=== PATIENT | female | born 1940 | race Caucasian/White ===

== ENCOUNTER → 2017-08-12 | Outpatient (CLI) | payer MEDICARE, BC ==
[~2017-08-12] MED LIST: ASPI81CH PO; ASPI81EC PO; CHOL10002 PO; CLIN300 PO; Cleocin HCl300 MG PO; GLUCHON PO; Hair, Skin & N1 EACH PO; IBUP600 PO; LORA1 PO; LOVA40 PO; METH10 PO; METH5 PO; Norco 5-325 Ta1 EACH PO; UBID100 PO; WARF1 PO; WARF2.5 PO; WARF5 PO
== END | disposition home or self-care (01) ==
LOC: LAB EV 15:23
DX: L03.115 Cellulitis of right lower limb (principal)
CPT/HCPCS: 87070; 87205

== ENCOUNTER 2017-08-29 20:55 | Emergency (ER) | payer MEDICARE, BC ==
[~2017-08-29] VITALS: Ht 165.1 cm; Wt 68.0 kg
[~2017-08-29 20:55] MED LIST changes: -CLIN300 PO; -METH10 PO
[2017-08-29] MEDS ORDERED: METH10 PO (22:57)
[2017-08-30] MEDS ORDERED: CLIN300 PO (00:12)
== END 2017-08-30 00:44 | disposition home or self-care (01) ==
LOC: ER 20:55
DX: L03.115 Cellulitis of right lower limb (principal); E11.9 Type 2 diabetes mellitus without complications; Z87.891 Personal history of nicotine dependence
CPT/HCPCS: 73630; 96365; 99283

== ENCOUNTER 2017-09-05 12:30 | Day surgery (SDC) | payer MEDICARE, BC ==
[~2017-09-05 12:30] MED LIST changes: +CLIN300 PO; +METH10 PO
== END 2017-09-05 14:20 | disposition home or self-care (01) ==
LOC: WOUND 12:30
DX: Z48.00 Encounter for change or removal of nonsurgical wound dressing (principal); I87.2 Venous insufficiency (chronic) (peripheral); L03.031 Cellulitis of right toe; E11.9 Type 2 diabetes mellitus without complications
CPT/HCPCS: G0463

== ENCOUNTER 2017-09-12 10:00 | Day surgery (SDC) | payer MEDICARE, BC | END 2017-09-12 23:02 | disposition home or self-care (01) | LOC: WOUND 10:00 | PROC: 2W1QX6Z Compression of Right Lower Leg using Pressure Dressing (ICD-10-PCS; principal; 2017-09-12) | DX: Z48.00 Encounter for change or removal of nonsurgical wound dressing (principal); E11.69 Type 2 diabetes mellitus with other specified complication; L03.031 Cellulitis of right toe; I87.2 Venous insufficiency (chronic) (peripheral); Z86.711 Personal history of pulmonary embolism | CPT/HCPCS: G0463 ==

== ENCOUNTER 2017-09-19 01:00 | Day surgery (SDC) | payer MEDICARE, BC | END 2017-09-19 10:51 | disposition home or self-care (01) | LOC: WOUND 01:00 | PROC: 2W1QX6Z Compression of Right Lower Leg using Pressure Dressing (ICD-10-PCS; principal; 2017-09-19) | DX: Z48.00 Encounter for change or removal of nonsurgical wound dressing (principal); I87.2 Venous insufficiency (chronic) (peripheral); E11.69 Type 2 diabetes mellitus with other specified complication; L03.031 Cellulitis of right toe; Z86.711 Personal history of pulmonary embolism ==

== ENCOUNTER 2017-09-25 00:23 | Day surgery (SDC) | payer MEDICARE, BC | END 2017-09-25 15:05 | disposition home or self-care (01) | LOC: WOUND 00:23 | PROC: 2W1QX6Z Compression of Right Lower Leg using Pressure Dressing (ICD-10-PCS; principal; 2017-09-25) | DX: Z48.00 Encounter for change or removal of nonsurgical wound dressing (principal); E11.69 Type 2 diabetes mellitus with other specified complication; I87.2 Venous insufficiency (chronic) (peripheral); L03.031 Cellulitis of right toe; E11.622 Type 2 diabetes mellitus with other skin ulcer; L97.811 Non-pressure chronic ulcer of other part of right lower leg limited to breakdown of skin | CPT/HCPCS: 93970; G0463 ==

== ENCOUNTER 2017-09-27 11:00 | Day surgery (SDC) | payer MEDICARE, BC | END 2017-09-27 12:39 | disposition home or self-care (01) | LOC: WOUND 11:00 | DX: Z48.00 Encounter for change or removal of nonsurgical wound dressing (principal); I87.2 Venous insufficiency (chronic) (peripheral); E11.69 Type 2 diabetes mellitus with other specified complication; L03.031 Cellulitis of right toe ==

== ENCOUNTER 2017-10-04 00:17 | Day surgery (SDC) | payer MEDICARE, BC | END 2017-10-04 22:41 | disposition home or self-care (01) | LOC: WOUND 00:17 | DX: Z48.00 Encounter for change or removal of nonsurgical wound dressing (principal); I87.2 Venous insufficiency (chronic) (peripheral); L03.031 Cellulitis of right toe; E11.9 Type 2 diabetes mellitus without complications | CPT/HCPCS: G0463 ==

== ENCOUNTER → 2023-02-15 | Outpatient (CLI) | payer MEDICARE, BC ==
[~2023-02-15] MED LIST changes: +ESCI10 PO; +METO25ER PO; +VICTOZA 2-0.6 MG/0.1 SC; +XARELTO20 MG PO
[2023-02-15 11:38] LABS: International Normalized Ratio 1.5; Prothrombin Time Results 15.4 Sec (9.7-11.5)
== END | disposition home or self-care (01) ==
LOC: LAB SHORT 10:52 → LAB 10:52
PROVIDERS: Physician Assistant
DX: R92.8 Other abnormal and inconclusive findings on diagnostic imaging of breast (principal)
CPT/HCPCS: 36415; 85610

== ENCOUNTER 2023-03-24 13:32 | Day surgery (SDC) | payer MEDICARE, BC ==
[~2023-03-24 13:32] MED LIST changes: +ASCORBIC ACID500 MG PO; +DEXA2 PO; +MAGNESIUM PO; +NITR.4SL SL; +OMEGA-3 + VITA200 ML PO; +ONDA8 PO; +VITAMIN D310 MC5 PO; +ZINC15 PO
== END 2023-03-31 22:56 | disposition home or self-care (01) ==
LOC: MOI US 13:32
DX: C50.911 Malignant neoplasm of unspecified site of right female breast (principal)
CPT/HCPCS: 19285; A4648

== ENCOUNTER 2023-03-28 12:00 | Day surgery (SDC) | payer MEDICARE, BC | END 2023-04-03 22:44 | disposition home or self-care (01) | LOC: MOI US 12:00 | DX: C50.911 Malignant neoplasm of unspecified site of right female breast (principal) | CPT/HCPCS: 19285; 76942; A4648 ==

== ENCOUNTER 2023-03-29 08:05 | Day surgery (SDC) | payer MEDICARE, BC ==
[~2023-03-29] VITALS: Ht 165.1 cm; Wt 69.8 kg
[2023-03-29] VITALS (10 sets, daily range): BP systolic 121–160; BP diastolic 57–83
--- NOTE | 2023-03-29 09:37 | NUR ---
Ambulatory in Day Surgery History, Chart, Medications and Allergies reviewed before start of procedure. Pre-Op teaching done. Pt verbalizes understanding. Patient States Post-Procedure ride home has been arranged with daughter.
--- NOTE | 2023-03-29 11:29 | NUR ---
03/29/23 1129 Marily Paez 1125 CALL FROM [facility] IN RADIOLOGY, PER DR. CEDENO SPECIMEN APPEARED TO HAVE ALL COMPONENTS
== END 2023-03-29 22:42 | disposition home or self-care (01) ==
LOC: ORSCMMR 08:05 → NM 08:05
PROVIDERS: Surgery
PROC: 07B50ZX Excision of Right Axillary Lymphatic, Open Approach, Diagnostic (ICD-10-PCS; principal; 2023-03-29 10:00)
PROC: 0HBT0ZZ Excision of Right Breast, Open Approach (ICD-10-PCS; principal; 2023-03-29 10:00)
DX: C50.911 Malignant neoplasm of unspecified site of right female breast (principal); Z17.0 Estrogen receptor positive status [ER+]; D36.0 Benign neoplasm of lymph nodes; I10 Essential (primary) hypertension; E11.9 Type 2 diabetes mellitus without complications; Z87.891 Personal history of nicotine dependence; J44.9 Chronic obstructive pulmonary disease, unspecified; K21.9 Gastro-esophageal reflux disease without esophagitis; Z79.899 Other long term (current) drug therapy; Z79.01 Long term (current) use of anticoagulants
CPT/HCPCS: 38792; 76098; 82947; 88307; 88329; 88331; 88333; A9270; A9520; J0690; J1100; J2371; J2405; J2704; J3010; J7120; Q9968

== ENCOUNTER 2025-06-09 08:15 | Day surgery (SDC) | payer MEDICARE, BC ==
[~2025-06-09] VITALS: Ht 160 cm; Wt 65.5 kg
[2025-06-09] VITALS (13 sets, daily range): BP systolic 90–145; BP diastolic 41–76
[~2025-06-09 08:15] MED LIST changes: +ALBU90OI INH; +ANASTROZOLE1 M7 PO; +ARTHRITIS PAIN150 GM TOP; +CeFAZolin Sodium 2,000 MG in NS 100 ML IV SCH; +Chlorhexidine Mouth Care 15 ML UDC MT SCH; +METFORMIN HCL1000 MG PO; +Tranexamic Acid 100 ML IV SCH; +VICTOZA 3-0.6 MG/0.2 SC
[2025-06-09] MEDS ORDERED: Ropivacaine 0.5% HCl/Pf 123.125 MG,EPINEPHrine HCL 0.25 MG,Ketorolac Tromethamine 15 MG... INFIL SCH (09:15)
--- NOTE | 2025-06-09 09:36 | NUR ---
Pre-Op teaching done. Pt verbalizes understanding. History, Chart, Medications and Allergies reviewed before start of procedure. Patient confirms NPO status and agrees with scheduled surgery. Patient States Post-Procedure ride home has been arranged. IN VIA W/C, ABLE TO TOLERATE SHORT DISTANCE WITH CANE.
[2025-06-09] MEDS ORDERED: Midazolam HCl 1MG / ML 2ML Vial IV SCH (10:10)
--- NOTE | 2025-06-09 10:33 | NUR ---
TEMP 99.7, PATIENT DENIES FEELING ILL. DR. GAGE INFORMED.
--- NOTE | 2025-06-09 10:33 | NUR ---
DENTURES REMOVED AND PLACED IN RECOVERY IN PATIENT LABELED CONTAINER.
[2025-06-09] MEDS ORDERED: HYDROmorphone HCl/Pf 1MG SYR IV PRN ×2 (10:55)
[2025-06-09] MEDS ORDERED: FentaNYL Citrate 50 MCG/ML 2 ML Injection IV PRN ×2 (10:55→11:00)
[2025-06-09] MEDS ORDERED: Phenylephrine HCl 10mg/ml 1 ml Vial ONE ×2 (10:55→11:05)
[2025-06-09] MEDS ORDERED: Albuterol 2.5 MG/3 ML VIAL INH PRN (11:00)
[2025-06-09] MEDS ORDERED: ePHEDrine Sulfate 50 MG/ML 1ML Injection IV PRN (11:00)
[2025-06-09] MEDS ORDERED: Metoclopramide HCl 5MG / ML 2ML Vial IV PRN ×2 (11:00→11:10)
[2025-06-09] MEDS ORDERED: Dexamethasone Sodium Phosphate 4 MG/ML 5ML VIAL IV PRN (11:00)
[2025-06-09] MEDS ORDERED: Ondansetron HCl 2 MG / ML 2ML Vial IV PRN ×2 (11:00→11:15)
[2025-06-09] MEDS ORDERED: Magnesium Hydroxide Conc 10 ML UDC PO PRN (11:10)
[2025-06-09] MEDS ORDERED: FLU VACC TS2025(65UP)/MF59C/PF 45 MCG/0.5 ML SYRINGE IM SCH (11:25)
[2025-06-09] MEDS ORDERED: Insulin Regular 100 UNIT/ML 10ML Vial SC SCH (11:30)
[2025-06-09] MEDS ORDERED: Prochlorperazine Edisylate 10 mg Vial IV PRN (11:30)
--- NOTE | 2025-06-09 13:24 | NUR ---
POST OP ARRIVAL TO SURGICAL UNIT VIA HOSPITAL BED. ALERT, ORIENTED, PLEASANT. ASSESSMENT CHARTED. DENIES N/V SO SNACKS & DRINKS GIVEN. CRYOTHERAPY IN PLACE.
--- NOTE | 2025-06-09 16:58 | NUR ---
SHIFT SUMMARY PT HAS DONE WELL POST OP; WAS INITIALLY DROWSY THEN BP TRENDED DOWN. NOW BP IS BETTER & PLAN TO GET UP TO A CHAIR AFTER A BIT. PAIN TOLERABLE AT THIS TIME.
[2025-06-09] MEDS ORDERED: MetFORMIN HCl 500 mg PO SCH (17:00)
[2025-06-09] MEDS ORDERED: ACET500 PO (17:45)
[2025-06-09] MEDS ORDERED: DOCU100 PO (17:46)
[2025-06-09] MEDS ORDERED: Ketorolac Tromethamine 15mg Vial IV SCH (18:00)
--- NOTE | 2025-06-09 18:05 | NUR ---
ASSUMED CARE FROM JENNA RN- POST ASSUMPTION PT HAS STOOD, AMBULATED TO BATHROOM AND VOIDED. TOLERATING DINNER NOW. HAS RECEIVED 1 DOSE IV TORADOL. PAIN TOLERATED CURRENTLY. BP STABLE. SOPHIA STALLWORTHG CDI. DAUGHTER AT BEDSIDE. PT UP IN CHAIR CURRENTLY. USING CALL LIGHT APPROPRIATELY.
[2025-06-09] MEDS ORDERED: CeFAZolin Sodium 2,000 MG in NS 100 ML IV SCH (18:30)
--- NOTE | 2025-06-09 18:53 | NUR ---
DC INSTRUCTIONS PROVIDED TO PT AND DAUGHTER IN ROOM. EXTRA AQUACELL DRESSING GIVEN T PT. COLDPACK PACKED UP. PT AWAITING WALKING ON STAIRS IN ORTHO ROOM AND THEN PLANS TO DC. VSS.
--- NOTE | 2025-06-09 19:48 | NUR ---
DISCHARGE PT PRACTICED WALKING UP AND DOWN STAIRS IN ORTHO GYM, TOLERATED WELL. IV REMOVED. DISCHARGE COMPLETED BY DAY LAISHA GUTIERREZ. PT WHEELED OUT BY MELANIE MÁRQUEZ. BELGABRIELLEINGS IN PLACE.
== END 2025-06-09 19:45 | disposition home or self-care (01) ==
LOC: ORSCMMR 08:15 → ORD 09:30 → SURS 13:10 → ORSCMMR 19:45
PROVIDERS: Orthopaedic Surgery
PROC: 0SRB0JA Replacement of Left Hip Joint with Synthetic Substitute, Uncemented, Open Approach (ICD-10-PCS; principal; 2025-06-09 09:30)
DX: M16.12 Unilateral primary osteoarthritis, left hip (principal); Z96.641 Presence of right artificial hip joint; Z85.3 Personal history of malignant neoplasm of breast; Z85.41 Personal history of malignant neoplasm of cervix uteri; Z86.718 Personal history of other venous thrombosis and embolism; Z79.01 Long term (current) use of anticoagulants; Z87.891 Personal history of nicotine dependence; Z79.899 Other long term (current) drug therapy; J44.9 Chronic obstructive pulmonary disease, unspecified; Z79.84 Long term (current) use of oral hypoglycemic drugs; E11.9 Type 2 diabetes mellitus without complications; E78.5 Hyperlipidemia, unspecified; I10 Essential (primary) hypertension; Z86.711 Personal history of pulmonary embolism
CPT/HCPCS: 72170; 82947; A9270; C1776; J0166; J0690; J0735; J1885; J2250; J2371; J2704; J2795; J7120